=== PATIENT | female | born 1985 | race Hispanic/Latino ===

== ENCOUNTER 2018-08-13 16:01 | Emergency (ER) | payer SELFPAY ==
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
[2018-08-13] MEDS ORDERED: HYDROCODONE/APAP 7.5/325 MG TAB ONE (17:50)
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
--- NOTE | 2018-08-13 18:17 | RAD REPORT ---
EXAM DESCRIPTION: RAD - Lumbar Spine 3 Views - 08/13/2018 5:55 pm CLINICAL HISTORY: PAIN Radiculopathy COMPARISON: No comparisons FINDINGS: Vertebral body heights appear maintained. No compression fracture noted. Disc spaces are m aintained. No spondylolysis or spondylolisthesis. IMPRESSION: Negative study.
== END 2018-08-13 18:20 | disposition home or self-care (01) ==
LOC: ER 16:01
DX: S13.4XXA Sprain of ligaments of cervical spine, initial encounter (principal); G89.11 Acute pain due to trauma; V49.40XA Driver injured in collision with unspecified motor vehicles in traffic accident, initial encounter; F17.210 Nicotine dependence, cigarettes, uncomplicated
CPT/HCPCS: 70450; 72100; 72125; 99284

== ENCOUNTER 2019-01-17 12:28 | Emergency (ER) | payer SELFPAY ==
[2019-01-17] MEDS ORDERED: FLUORESCEIN SODIUM 1 MG/WRAP ONE (12:57)
[2019-01-17] MEDS ORDERED: TETRACAINE HCL 0.5% 4ML OPTH ONE (12:57)
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
== END 2019-01-17 15:14 | disposition home or self-care (01) ==
LOC: ER 12:28
DX: S05.12XA Contusion of eyeball and orbital tissues, left eye, initial encounter (principal); V29.9XXA Motorcycle rider (driver) (passenger) injured in unspecified traffic accident, initial encounter
CPT/HCPCS: 99283

== ENCOUNTER 2020-01-22 23:00 | Emergency (ER) | payer SELFPAY ==
[2020-01-22] MEDS ORDERED: NA CHLORIDE 0.9% 2,000 ML ONE (23:23)
[2020-01-22] MEDS ORDERED: TETRACAINE HCL 0.5% 4ML OPTH ONE (23:55)
[2020-01-23] MEDS ORDERED: HYDROCODONE/APAP 10/325 TAB ONE (00:11)
[2020-01-23] MEDS ORDERED: TETANUS & DIPHTHERIA TOX,ADULT 0.5 ML VIAL ONE (00:11)
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
[2020-01-23] MEDS ORDERED: FLUORESCEIN SODIUM 1 MG/WRAP ONE (00:57)
[2020-01-23] MEDS ORDERED: GENTAMICIN 0.3% OPTH DROP 5ML ONE (01:04)
[2020-01-23 01:45] VITALS: BP 128/82; TEMP 99; O2SAT 99
--- NOTE | 2020-01-23 11:33 | RAD REPORT ---
EXAM DESCRIPTION: RAD - Forearm Left - 01/23/2020 1:02 am CLINICAL HISTORY: PAIN COMPARISON: No comparisons FINDINGS: Soft tissue swelling is seen along the dorsum of the forearm. No acute fracture or disloca tion evident.
--- NOTE | 2020-01-23 11:33 | RAD REPORT ---
EXAM DESCRIPTION: RAD - Chest Single View - 01/23/2020 1:03 am CLINICAL HISTORY: PAIN Chest pain. COMPARISON: No comparisons FINDINGS: Portable technique limits examination quality. The lungs are grossly clear. The heart is normal in size. No displaced fractures. IMPRESSION: No acute intrathoracic process suspected.
--- NOTE | 2020-01-23 11:33 | RAD REPORT ---
EXAM DESCRIPTION: RAD - Hand Left 3 View - 01/23/2020 1:01 am CLINICAL HISTORY: Pain;Swelling COMPARISON: No comparisons FINDINGS: Soft tissue swelling is seen about the region of the metacarpal heads. No acute fracture o r dislocation.
--- NOTE | 2020-01-23 11:33 | RAD REPORT ---
EXAM DESCRIPTION: RAD - Elbow Left 2 View - 01/23/2020 1:03 am CLINICAL HISTORY: PAIN COMPARISON: No comparisons FINDINGS: Soft tissue swelling is seen along the dorsum of the forearm and elbow. No acute fracture or dislocation seen.
--- NOTE | 2020-01-23 11:33 | RAD REPORT ---
EXAM DESCRIPTION: RAD - Wrist Left 3 View - 01/23/2020 1:02 am CLINICAL HISTORY: PAIN Pain COMPARISON: No comparisons FINDINGS: No acute fracture or dislocation evident.
== END 2020-01-23 01:38 | disposition home or self-care (01) ==
LOC: ER 23:00
DX: S29.012A Strain of muscle and tendon of back wall of thorax, initial encounter (principal); S80.212A Abrasion, left knee, initial encounter; H10.9 Unspecified conjunctivitis; S60.212A Contusion of left wrist, initial encounter; S60.222A Contusion of left hand, initial encounter; Y04.2XXA Assault by strike against or bumped into by another person, initial encounter; Y93.9 Activity, unspecified; Y92.9 Unspecified place or not applicable; Z23 Encounter for immunization; F17.210 Nicotine dependence, cigarettes, uncomplicated
CPT/HCPCS: 71045; 90471; 90714; 99284; G0390; J7030

== ENCOUNTER 2020-08-31 19:13 | Emergency (ER) | payer SELFPAY ==
[2020-08-31] MEDS ORDERED: KETOROLAC 30 MG/ML INJ ONE (20:22)
--- NOTE | 2020-08-31 20:41 | RAD REPORT ---
EXAM DESCRIPTION: RAD - Chest Single View - 08/31/2020 8:19 pm CLINICAL HISTORY: CHEST PAIN Chest pain. COMPARISON: Chest Single View dated 01/23/2020 FINDINGS: Portable technique limits examination quality. The lungs are grossly clear. The heart is normal in size. No displaced fractures. IMPRESSION: No acute intrathoracic process suspected.
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
--- NOTE | 2020-08-31 20:45 | ER ---
Nurse's Notes [facility] Age: 35 y[facility] Sex: Female : 1985 Arrival Date: 08/31/2020 Time: 19:17 Bed 23 Private MD: Diagnosis: Chest pain on breathing Presentation: 08/31 19:27 Chief complaint: Patient states: For the past week, been having pain under the L ca1 breast. I don't know if I pulled a muscle or broke a rib. It hurts to take a deep breath, move and stay in certain positions. 2 - 3 days prior to the pain, I was leaning on the edge of a sink and I felt a pop. Coronavirus screen: Client denies travel out of the [place] in the last 14 days. At this time, the client does not indicate any symptoms associated with coronavirus-19. Ebola Screen: Patient negative for fever greater than or equal to 101.5 degrees Fahrenheit, and additional compatible Ebola Virus Disease symptoms Patient denies exposure to infectious person. Patient denies travel to an Ebola-affected area in the 21 days before illness onset. No symptoms or risks identified at this time. Initial Sepsis Screen: Does the patient meet any 2 criteria? No. Patient's initial sepsis screen is negative. Does the patient have a suspected source of infection? No. Patient's initial sepsis screen is negative. Risk Assessment: Do you want to hurt yourself or someone else? Patient reports no desire to harm self or others. Onset of symptoms was August 31, 2020. 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 - Social history:: Smoking status: Patient reports the use of cigarette tobacco products, smokes one-half pack cigarettes per day. Vital Signs: 19: BP 129 / 86; Pulse 95; Resp 16 S; Temp 97.7(TE); Pulse Ox 100% on R/A; Weight 72.57 kg ca1 (R); Height 5 ft. 4 in. (162.56 cm) (R); Pain 8/10; 19:27 Body Mass Index 27.46 (72.57 kg, 162.56 cm) ca1 ED Course: 19:17 Patient arrived in ED. es 19:31 Triage completed. ca1 19:32 Arm band placed on right wrist. ca1 19:34 Tati Simon FNP-C is [facility]. kb 19:34 Luis Disla MD is Attending Physician. kb 20:02 Mayte Benites, RN is Primary Nurse. dm5 20:19 Chest Single View XRAY In Process Unspecified. EDMS Administered Medications: 20:08 Drug: TORadol 30 mg Route: IM; Site: left deltoid; dm5 Outcome: 20:45 Discharge ordered by . kb 21:04 Patient left the ED. dm5 Signatures: Dispatcher [employer] EDRI aTti Simon FNP-C FNP-Ckb Markwardt, Deana, RN RN dm5 Renee Sweet Cheryl RN RN ca1
[2020-08-31 21:14] VITALS: BP 129/86; TEMP 97.7; O2SAT 100
== END 2020-08-31 21:04 | disposition home or self-care (01) ==
LOC: ER 19:13
DX: R07.1 Chest pain on breathing (principal); F17.210 Nicotine dependence, cigarettes, uncomplicated
CPT/HCPCS: 71045; 96372; 99283

== ENCOUNTER 2022-02-17 21:23 | Emergency (ER) | payer SELFPAY ==
[2022-02-17] MEDS ORDERED: IBUPROFEN 400 MG TAB ONE (22:44)
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
[2022-02-18 03:38] VITALS: BP 141/102; TEMP 99.3; O2SAT 99
--- NOTE | 2022-02-18 11:27 | RAD REPORT ---
EXAM DESCRIPTION: RAD - Hand Left 3 View - 02/17/2022 11:07 pm CLINICAL HISTORY: PAIN TECHNIQUE: Frontal, lateral and oblique views of the left hand. COMPARISON: No relevant prior studies available. FINDINGS: Bones/joints: Unremarkable. No acute fracture. No dislocation. Soft tissues: Unremarkable. No radiopaque foreign body. IMPRESSION: No acute injury. Electronically signed by: Jenni West MD 02/18/2022 12:07 AM CDT Due to temporary technical issues with the PACS/Fluency reporting system, reports are being signed by the in house radiologists without review as a courtesy to insure prompt reporting. The interpreting radiologist is fully responsible for the content of the report.
== END 2022-02-18 00:18 | disposition home or self-care (01) ==
LOC: ER 21:23
DX: S63.611A Unspecified sprain of left index finger, initial encounter (principal); F17.210 Nicotine dependence, cigarettes, uncomplicated
CPT/HCPCS: 99283

== ENCOUNTER 2024-09-06 14:31 | Emergency (ER) | payer SELFPAY ==
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
--- NOTE | 2024-09-06 16:47 | ER ---
Nurse's Notes [facility] Age[facility] 39 [facility] Sex: Female : 1985 Arrival Date: 09/06/2024 Time: 14:31 Bed 10 Private MD: Diagnosis: Displaced fracture of neck of fifth metacarpal bone, right hand, initial encounter for closed fracture Presentation: 09/06 14:42 Chief complaint: Patient states: punches a barstool a few weeks ago. Right hand me1 swelling with pain from 5th knuckle that radiates up to the wrist. Pain varies with movement, better with rest. Coronavirus screen: Vaccine status: Patient reports receiving the 2nd dose of the covid vaccine. Ebola Screen: No symptoms or risks identified at this time. Initial Sepsis Screen: Does the patient meet any 2 criteria? No. Patient's initial sepsis screen is negative. Does the patient have a suspected source of infection? No. Patient's initial sepsis screen is negative. Risk Assessment: Do you want to hurt yourself or someone else? Patient reports no desire to harm self or others. Onset of symptoms is unknown. 14:42 Method Of Arrival: Ambulatory [facility] [place] 14:42 Acuity: LESLI 4 me1 Triage Assessment: 16:28 General: Appears in no apparent distress. Behavior is cooperative, appropriate for age, bp anxious. Pain: Complains of pain in right hand. EENT: No deficits noted. Neuro: No deficits noted. Cardiovascular: No deficits noted. Respiratory: No deficits noted. GI: No signs and/or symptoms were reported involving the gastrointestinal system. GI: No signs and/or symptoms were reported involving the gastrointestinal system. : No signs and/or symptoms were reported regarding the genitourinary system. Derm: No deficits noted. Musculoskeletal: Circulation, motion, and sensation intact. Bony deformity noted of MCP of right little finger. Injury Description: Deformity sustained to MCP of right little finger. 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 - Infectious Disease History:: Denies. - Social history:: Smoking status: Patient denies any tobacco usage or history of. - Family history:: not pertinent. - Hospitalizations: : No recent hospitalization is reported. Screenin:29 [facility] ED Fall Risk Assessment (Adult) History of falling in the last 3 months, bp including since admission No falls in past 3 months (0 pts) Confusion or Disorientation No (0 pts) Intoxicated or Sedated No (0 pts) Impaired Gait No (0 pts) Mobility Assist Device Used No (0 pt) Altered Elimination No (0 pt) Score/Fall Risk Level 0 - 2 = Low Risk Oriented to surroundings. Abuse screen: Denies threats or abuse. Denies injuries from another. Nutritional screening: No deficits noted. Tuberculosis screening: No symptoms or risk factors identified. Assessment: 16:29 General: Appears uncomfortable, Behavior is appropriate for age. bp Vital Signs: 14:42 BP 144 / 98; Pulse 88; Resp 18; Temp 98.4; Pulse Ox 100% ; Weight 77.11 kg; Height 5 me1 ft. 4 in. ; Pain 6/10; 14:42 Body Mass Index 29.18 (77.11 kg, 162.56 cm) me1 14:42 Pain Scale: Adult me1 ED Course: 14:33 Patient arrived in ED. mr 14:39 Klaus Parker MD is Attending Physician. rn 14:44 Triage completed. me1 14:44 Arm band placed on Patient placed in waiting room. me1 16:23 Rudy Singh, GAYATRI is Primary Nurse. bp 16:53 XRAY Hand RIGHT 3 View In Process Unspecified. EDMS 16:59 Patient has correct armband on for positive identification. bp 16:59 No provider procedures requiring assistance completed. Patient did not have IV access bp during this emergency room visit. Administered Medications: No medications were administered Medication: 16:29 VIS not applicable for this client. bp Outcome: 16:46 Discharge ordered by . rn 16:59 Discharged to home ambulatory, bp 16:59 Condition: stable 16:59 Discharge instructions given to patient, Instructed on discharge instructions, follow up and referral plans. Demonstrated understanding of instructions, follow-up care, 17:00 Patient left the ED. bp Signatures: Dispatcher [employer] EDHI Rosa Vasquez, Reg Reg mr Klaus Parker MD MD rn Peltier, Brian, RN RN bp Eddleman, Lena, RN RN me1
--- NOTE | 2024-09-06 17:23 | RAD REPORT ---
EXAM: XR Hand Right 3 View HISTORY: [facility] MAIN PAIN Bed Name: [id number] COMPARISON: None TECHNIQUE: 3 radiographic views of the RIGHT hand submitted. FINDINGS: Comminuted fracture at the neck of the fifth metacarpal with mild lateral displacement of t he head/distal fragments. Joint alignment is maintained. No soft tissue swelling is seen.. No significant degenerative changes are present. IMPRESSION: Comminuted fracture of the neck of the fifth metacarpal as above.
[2024-09-06 17:37] VITALS: BP 144/98; TEMP 98.4; O2SAT 100
== END 2024-09-06 17:00 | disposition home or self-care (01) ==
LOC: ER 14:31
DX: S62.366A Nondisplaced fracture of neck of fifth metacarpal bone, right hand, initial encounter for closed fracture (principal)
CPT/HCPCS: 99282